=== PATIENT | female | born 1960 | race Caucasian/White ===

== ENCOUNTER → 2017-02-11 | Outpatient (CLI) | payer BC ==
--- NOTE | 2017-02-12 08:55 | Diagnostic Imaging Report ---
Bilateral screening mammogram The current study was also evaluated with a Computer Aided Detection (CAD) system. INDICATION: Screening. No current complaints stated on the questionnaire. COMPARISON: 01/16/16. FINDINGS: The breasts are composed of scattered fibroglandular densities. There are occasional benign-appearing calcifications. Biopsy clips in the right breast are seen. Allowing for technique and positional differences, no suspicious change is seen. IMPRESSION: No significant change. ACR BI-RADS Category 2: Benign findings. Result letter will be mailed to the patient. Note: At least 10% of breast cancer is not imaged by mammography. Dictated by: Dictated on workstation # [id number]
== END ==
LOC: RAD 10:41
PROVIDERS: ATTEND Family Medicine
DX: Z12.31 Encounter for screening mammogram for malignant neoplasm of breast (principal)
CPT/HCPCS: 77067

== ENCOUNTER → 2018-02-12 | Outpatient (CLI) | payer BC ==
--- NOTE | 2018-02-12 10:31 | Diagnostic Imaging Report ---
INDICATION: Routine screening. Comparison is made with prior study from 02/13/2017 and 01/16/2016. 2-D and 3-D bilateral screening mammography was performed with CAD. Both breast remain heterogeneously dense, limiting the sensitivity of mammography. Biopsy clips in the upper right breast are again noted. The parenchymal pattern is stable. No dominant mass or malignant appearing microcalcifications are seen. Axillae are unremarkable. IMPRESSION: BI-RADS category 2 No mammographic features suspicious for malignancy are identified. ACR BI-RADS Category 2: Benign findings. Result letter will be mailed to the patient. Note: At least 10% of breast cancer is not imaged by mammography. Dictated by: Dictated on workstation # [id number]
== END ==
LOC: RAD 09:25
PROVIDERS: ATTEND Family Medicine
DX: Z12.31 Encounter for screening mammogram for malignant neoplasm of breast (principal)
CPT/HCPCS: 77067

== ENCOUNTER → 2021-06-06 | Outpatient (CLI) | payer BC ==
--- NOTE | 2021-06-06 16:19 | Diagnostic Imaging Report ---
INDICATION: Bilateral knee pain. COMPARISON: None. FINDINGS: Multiple radiographic views of the bilateral knees were obtained and demonstrate no acute fracture or dislocation. No focal osseous lesions are seen. No significant joint effusion is seen. The surrounding soft tissue structures are unremarkable. There are no radiopaque foreign bodies. IMPRESSION: 1. Unremarkable radiographic exam of the bilateral knees. Dictated by: Dictated on workstation # [id number]
== END ==
LOC: RAD 14:58
PROVIDERS: ATTEND Family Medicine
DX: M25.561 Pain in right knee (principal); M25.562 Pain in left knee

== ENCOUNTER → 2021-06-13 | Outpatient (CLI) | payer BC ==
--- NOTE | 2021-06-14 09:20 | Diagnostic Imaging Report ---
Indication: Routine screening. Comparison is made with prior mammogram from 02/15/2019 and 02/12/2018. 2-D and 3-D bilateral screening mammography was performed with CAD. Both breasts are heterogeneously dense, limiting the sensitivity of mammography. Biopsy marker clips in the right breast are again noted. There are benign calcifications present. No mass or malignant-appearing microcalcifications are seen. Axillae are unremarkable. IMPRESSION: BI-RADS Category 2 No mammographic features suspicious for malignancy are identified. ACR BI-RADS Category 2: Benign findings. Result letter will be mailed to the patient. Note: At least 10% of breast cancer is not imaged by mammography. Dictated by: Dictated on workstation # [id number]
== END ==
LOC: RAD 13:00
PROVIDERS: ATTEND Family Medicine
DX: Z12.31 Encounter for screening mammogram for malignant neoplasm of breast (principal); Z98.890 Other specified postprocedural states
CPT/HCPCS: 77063; 77067

== ENCOUNTER 2021-08-13 09:56 | Outpatient (CLI) | payer BC | END 2021-08-13 10:15 | LOC: SLEEP 09:56 | PROVIDERS: ATTEND Family Medicine | DX: G47.33 Obstructive sleep apnea (adult) (pediatric) (principal) | CPT/HCPCS: G0399 ==

== ENCOUNTER → 2022-06-18 | Outpatient (CLI) | payer BC ==
[~2022-06-18] MED LIST: CETI10TA49 PO; CHOL500050 PO; GLUC-219 PO; MULT-593 PO
--- NOTE | 2022-06-18 16:10 | Diagnostic Imaging Report ---
Indication: Routine screening. Comparison is made with prior mammograms 06/13/2021 and 02/15/2019. 2-D and 3-D bilateral screening mammography was performed with CAD. Scattered fibroglandular densities are identified bilaterally. There are biopsy clips right breast. Scattered benign calcifications are noted. No mass or malignant-appearing microcalcifications are seen. Axillae are unremarkable. IMPRESSION: BI-RADS Category 2 No mammographic features suspicious for malignancy are identified. ACR BI-RADS Category 2: Benign findings. Result letter will be mailed to the patient. Note: At least 10% of breast cancer is not imaged by mammography. Dictated by: Dictated on workstation # [id number]
== END ==
LOC: RAD 14:00
PROVIDERS: ATTEND Family Medicine
DX: Z12.31 Encounter for screening mammogram for malignant neoplasm of breast (principal)
CPT/HCPCS: 77063; 77067

== ENCOUNTER 2022-06-21 07:53 | Outpatient (CLI) | payer BC ==
[~2022-06-21] VITALS: Ht 167.6 cm; Wt 79.4 kg
[2022-06-21] MEDS ORDERED: MULT-593 PO (14:58)
[2022-06-21] MEDS ORDERED: GLUC-219 PO (14:58)
[2022-06-21] MEDS ORDERED: CETI10TA49 PO (14:58)
[2022-06-21] MEDS ORDERED: CHOL500050 PO (14:59)
== END 2022-06-21 15:02 ==
LOC: PREOP 07:53
PROVIDERS: ATTEND Internal Medicine
DX: Z01.818 Encounter for other preprocedural examination (principal)

== ENCOUNTER 2022-06-28 08:28 | Day surgery (SDC) | payer BC ==
--- NOTE | 2022-06-21 19:02 | HISTORY AND PHYSICAL ---
DATE OF SERVICE: COLONOSCOPY HISTORY AND PHYSICAL HISTORY OF PRESENT ILLNESS: The patient is a 62-year-old white female referred by Dr. Rocha for her first screening colonoscopy. She is deemed to be of average risk as she is not aware of any family history for colon cancer. She reports no melena or bright red blood per rectum or change in bowel habit or change in weight. PAST MEDICAL HISTORY: Significant for obstructive sleep apnea, currently she is taking no prescription medication. PAST SURGICAL HISTORY: She reports no past surgeries. FAMILY HISTORY: Father has history of hypertension, hyperlipidemia, no known history of colon polyposis or cancer. Mother has arthritis, hypertension, hyperlipidemia with no history of known colon polyps or cancer. 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 No past smoking history and occasional social alcohol intake. REVIEW OF SYSTEMS: CONSTITUTIONAL: Denies night sweats, chills, fever or change in weight. PULMONARY: Denies cough, wheezing or shortness of breath. CARDIOVASCULAR: Denies orthopnea, PND, pedal edema, syncope or chest discomfort. GASTROINTESTINAL: As noted in the HPI. PHYSICAL EXAMINATION: GENERAL: Reveals a pleasant white female, appears to be in no acute distress. HEENT: Unremarkable. Sclerae nonicteric. Blood pressure 112/80. CARDIOVASCULAR: Reveals a regular rate and rhythm without murmur, S3 or S4. Oral cavity reveals a Mallampati 2 configuration with no erythema or exudate. CHEST: Clear to auscultation. ABDOMEN: Soft, supple without mass, organomegaly or tenderness. ASSESSMENT AND PLAN: The patient is being set up for screening colonoscopy, deemed to be of average risk. Prep instructions were given. Electronic medical record was reviewed and questions were answered. I thank you for the referral of this pleasant lady. Job ID: [id number] DocumentID: [id number] Dictated Date: 06/20/2022 16:02:22 [employer] Balancing Technician Date: 06/20/2022 17:05:33 Dictated By: ZECHARIAH SOLOMON MD [email or web address]
[~2022-06-28] VITALS: Ht 168 cm; Wt 79.4 kg
[2022-06-28] MEDS ORDERED: LACTATED RINGERS 1,000 ML IV STA (08:31)
--- NOTE | 2022-06-28 08:31 | Pre-Op Note & Conscious Sedat ---
Pre-Operative Progress Note Date H&P Reviewed: Jun 28, 2022 Time H&P Reviewed: 08:31 History & Physical: H&P Reviewed, Patient Examed, No changes noted Pre-Op Diagnosis: Screening Conscious Sedation Pre-Proced ASA Score 2 For ASA 3 and 4: Consider anesthesia and medical clearance. Also, for patients with a history of failed moderate sedation consider anesthesia. Airway Lungs Heart ASA score ASA 1: a normal healthy patient ASA 2: a patient with a mild systemic disease (mid diabetes, controlled hypertension, obesity ASA 3: a patient with a severe systemic disease that limits activity (angina, COPD, prior Myocardial infarction) ASA 4: a patient with an incapacitating disease that is a constant threat to life (CHF, renal failure) ASA 5: a moribund patient not expected to survive 24 hrs. (ruptured aneurysm) ASA 6: a declared brain- patient whose organs are being harvested. For emergent operations, add the letter E after the classification Mallampati Classification Grade 2 Sedation Plan Analgesia, Amnesia, Plan communicated to team members, Discussed options with patient/fam, Discussed risks with patient/fam The patient is an appropriate candidate to undergo the planned procedure, sedation, and anesthesia. The patient immediately re-assessed prior to indication. ZECHARIAH SOLOMON MD Jun 28, 2022 08:31
[2022-06-28 08:40] VITALS: BP 123/64
[2022-06-28] MEDS ORDERED: PROPOFOL INJECTION 50 ML IV ONE (09:07)
[2022-06-28 09:44] VITALS: BP 102/59
--- NOTE | 2022-06-28 09:46 | Progress Note-Post Operative ---
Post-Procedure Note Physician (s)/[employer] Manager (s) Physician ZECHARIAH SOLOMON MD Pre-Procedure Diagnosis Pre-Procedure Diagnosis: Screening Post-Procedure Diagnosis Post-operative diagnosis: Screening colonoscopy The patient was placed in the left lateral cues position. Prior to undergoing colonoscopy digital rectal evaluation was performed. Anal stricture tone was normal and the perianal reflexes intact. The colonoscope was then inserted into the rectum and under direct visualization advanced to the cecum. The cecum was identified by identification of the ileocecal valve and the cecal strap. Photographic documentation was obtained. Quality the prep was good. A careful inspection was made as the colonoscope was withdrawn. Findings: There are no evidence for internal or external hemorrhoids and the rectum was unremarkable. Mild diverticular disease confined to the sigmoid colon was present without evidence for diverticulitis. One 8 mm sessile adenomatous appearing polyp was present in the distal sigmoid colon 20 cm from the anal verge. Photograph was obtained the polyp was cauterized via hot forceps with no subsequent blood loss. Other than diverticulum the remainder of the sigmoid colon was unremarkable as was the descending colon splenic flexure transverse colon hepatic flexure ascending colon and cecum. A/P1. 1 8 mm sessile polyp was removed via hot forceps from the distal sigmoid colon approximately 25 cm from the anal verge. As long as there is no evidence for dysplasia we will advocate repeat surveillance colonoscopy in 3 years. Mild diverticular disease confined to the sigmoid colon was present without evidence of diverticulitis. CC: ZECHARIAH Robison MD Jun 28, 2022 09:46
[2022-06-28 09:50] VITALS: BP 100/55
[2022-06-28 10:15] VITALS: BP 115/70
[2022-06-28 10:18] VITALS: BP 115/70
--- NOTE | 2022-06-28 11:28 | Anesthesia-General Post-Op ---
MAC Patient Condition Mental Status/LOC: Same as Preop Cardiovascular: Satisfactory Nausea/Vomiting: Absent Respiratory: Satisfactory Pain: Controlled Complications: Absent Post Op Complications Complications None Follow Up Care/Instructions Patient Instructions None needed. Anesthesiology Discharge Order Discharge Order Patient was doing well after the procedure with no complaints, stable vital signs, no apparent adverse anesthesia problems. No complications reported per nursing. DHAVAL CARRION DO Jun 28, 2022 11:28
== END 2022-06-28 10:18 | disposition home or self-care (01) ==
LOC: ENDO 08:28
PROVIDERS: ATTEND Internal Medicine
DX: Z12.11 Encounter for screening for malignant neoplasm of colon (principal); D12.5 Benign neoplasm of sigmoid colon; K57.30 Diverticulosis of large intestine without perforation or abscess without bleeding; G47.33 Obstructive sleep apnea (adult) (pediatric)